=== PATIENT | female | born 1995 | race Hispanic/Latino ===

== ENCOUNTER 2021-04-27 13:27 | Emergency (ER) | payer SELFPAY ==
[2021-04-27 14:09] LABS: Absolute Lymphocytes (CBC) 1.5 K/uL (0.7-4.9); Hematocrit 36.2 % (36.0-45.0); Lymphocytes % 23.6 % (15.3-44.8); MPV 7.8 fL (7.6-11.3); RBC Red Blood Cell Count 4.13 M/uL (3.86-4.86)
[2021-04-27] MEDS ORDERED: PROMETHAZINE INJ 25 MG/ML AMP ONE (14:10)
[2021-04-27 14:15] LABS: Urine Blood 3+ (Negative); Urine Glucose Negative (Negative); Urine Protein 2+ (Negative); Urine Specific Gravity >=1.030 (1.005-1.030)
[2021-04-27 14:23] LABS: BUN Blood Urea Nitrogen 9 mg/dL (7-18); Bicarbonate 25 mmol/L (21-32); Glucose Level 147 mg/dL (74-106); Potassium 3.6 mmol/L (3.5-5.1); Sodium Level 137 mmol/L (136-145)
[2021-04-27 14:24] LABS: Urine Specific Gravity/Preg >1.030 (1.005-1.030)
[2021-04-27 14:40] LABS: HCG, Quantitative 3765 mIU/mL (1-3)
--- NOTE | 2021-04-27 15:10 | RAD REPORT ---
EXAM DESCRIPTION: US - Transvaginal OB - 04/27/2021 2:53 pm CLINICAL HISTORY: with abdominal pain COMPARISON: None. FINDINGS: The uterus measures 10 x 5 x 5 centimeters. 2 x 0.4 centimeter fluid collection within th e cervical canal probably a gestational sac. Within this is a 3 millimeter echogenic structure which may represent a pole. Cardiac activity not visualized Ovaries are normal in size and echotexture.. The right and left adnexa unremarkable No significant free fluid IMPRESSION: These findings probably indicate an incomplete
--- NOTE | 2021-04-27 15:54 | EDPHYS ---
Physician Documentation [facility] Name: Cher Woodward Age: 25 yrs Sex: Female : 1995 Arrival Date: 04/27/2021 Time: 13:31 Bed 16 Private MD: ED Physician Lupillo Hutchinson HPI: 04/27 15:55 This 25 yrs old Female presents to ER via EMS with complaints of Vaginal kb Bleeding. 15:55 The patient presents to the emergency department with abdominal pain, described as kb crampy, vaginal bleeding, that is moderate, with clots. The estimated gestational age is 8 weeks. course: care: none, Leakage of Fluid: none appreciated, Ultrasound: the patient had an ultrasound, which showed no fht detected on Monday at [facility] ER. Previous pregnancies: in previous pregnancies patient has had. Associated signs and symptoms: Pertinent positives: vaginal bleeding. The patient has not experienced similar symptoms in the past. 15:56 The patient has been recently seen by a physician:. Pt states she has had cramping and kb vaginal bleeding since Monday. Went to [facility] ER in [place] and was told she was 2 months but fht could not be detected. Came in today because the bleeding has increased with clots. 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 - Social history:: Smoking status: Patient denies any tobacco usage or history of. ROS: 15:55 Constitutional: Negative for fever, chills, and weight loss. kb 15:55 Abdomen/GI: Positive for abdominal cramps. 15:55 : Positive for vaginal bleeding. 15:55 All other systems are negative. Exam: 15:54 Constitutional: This is a well developed, well nourished patient who is awake, alert, kb and in no acute distress. Head/Face: Normocephalic, atraumatic. ENT: Moist Mucous membranes Cardiovascular: Regular rate and rhythm with a normal S1 and S2. No gallops, murmurs, or rubs. No pulse deficits. Respiratory: Respirations even and unlabored. No increased work of breathing. Talking in full sentences Skin: Warm, dry with normal turgor. Normal color. MS/ Extremity: Pulses equal, no cyanosis. Neurovascular intact. Full, normal range of motion. Neuro: Awake and alert, GCS 15, oriented to person, place, time, and situation. Moves all extremities. Normal gait. Psych: Awake, alert, with orientation to person, place and time. Behavior, mood, and affect are within normal limits. 15:54 Abdomen/GI: Inspection: abdomen appears normal, Bowel sounds: normal, Palpation: soft, in all quadrants, mild abdominal tenderness, in the suprapubic area. 15:54 : Pelvic Exam: External exam: is normal, Speculum exam: mild bleeding, blood clots in vaginal vault, no cervicitis, os that is open. Vital Signs: 13:40 BP 113 / 72; Pulse 94; Resp 18; Temp 98.7; Pulse Ox 97% ; Weight 104.33 kg; Height 5 ss7 ft. 6 in. (167.64 cm); 15:30 BP 102 / 56; Pulse 88; Resp 18; Pulse Ox 98% on R/A; ss7 13:40 Body Mass Index 37.12 (104.33 kg, 167.64 cm) ss7 MDM: 13:31 Patient medically screened. kb 15:54 Data reviewed: vital signs, nurses notes. Data interpreted: Pulse oximetry: on room air kb is 98 %. Interpretation: normal. Counseling: I had a detailed discussion with the patient and/or guardian regarding: the historical points, exam findings, and any diagnostic results supporting the discharge/admit diagnosis, lab results, radiology results, the need for outpatient follow up, an OB/Gyne specialist, to return to the emergency department if symptoms worsen or persist or if there are any questions or concerns that arise at home. 04/27 13:32 Order name: Abo/rh Typing; Complete Time: 16:05 kb 04/27 13:32 Order name: Basic Metabolic Panel; Complete Time: 14:40 kb 04/27 13:32 Order name: CBC with Diff; Complete Time: 14:10 kb 04/27 13:32 Order name: Quantitative Hcg; Complete Time: 14:40 kb 03/08 14:14 Order name: Urine Dipstick-Ancillary; Complete Time: 14:20 EDMS 04/27 14:17 Order name: Urine --Ancillary (enter results); Complete Time: 14:39 bd 04/27 13:32 Order name: IV Saline Lock; Complete Time: 13:54 kb 04/27 13:32 Order name: Labs collected and sent; Complete Time: 13:54 kb 04/27 13:32 Order name: NPO; Complete Time: 13:54 kb 04/27 13:32 Order name: Urine Dipstick-Ancillary (obtain specimen); Complete Time: 14:17 kb 04/27 13:32 Order name: US Transvaginal Ob; Complete Time: 15:16 kb 04/27 14:02 Order name: Labs - recollect needed: recollect abo/rh; Complete Time: 14:40 bd 04/27 15:20 Order name: Pelvic Exam Setup; Complete Time: 15:35 kb Administered Medications: No medications were administered Disposition: 17:08 Co-signature as Attending Physician, Lupillo Hutchinson MD. rn Disposition Summary: 04/27/21 15:53 Discharge Ordered Location: Home kb Condition: Stable kb Diagnosis - Incomplete spontaneous without complication kb Followup: kb - With: Emergency Department - When: As needed - Reason: Worsening of condition Followup: kb - With: Private Physician - When: 2 - 3 days - Reason: Recheck today's complaints, Continuance of care, Re-evaluation by your physician Discharge Instructions: - Discharge Summary Sheet kb - Incomplete Miscarriage kb Forms: - Medication Reconciliation Form kb - Thank You Letter kb - Antibiotic Education kb - Prescription Opioid Use kb - Work release form ss7 Signatures: Dispatcher [employer] EDMS Ita Vela, RAEGAN-Amirah CARLIN-Rachel Alva Roman, MD MD rn Smith, Shana, RN RN ss7
--- NOTE | 2021-04-27 15:54 | ER ---
Nurse's Notes [facility] Name: Cher Woodward Age: 25 yrs Sex: Female : 1995 Arrival Date: 04/27/2021 Time: 13:31 Bed 16 Private MD: Diagnosis: Incomplete spontaneous without complication Presentation: 04/27 13:40 Chief complaint: EMS states: Per EMS, pt was seen in [facility]. Told she was 2 ss7 months but the baby did not have a heart beat. Called EMS due to excessive vaginal bleeding with large clots. Coronavirus screen: Vaccine status: Patient reports being unvaccinated. Ebola Screen: No symptoms or risks identified at this time. Initial Sepsis Screen: Does the patient meet any 2 criteria? No. Patient's initial sepsis screen is negative. Does the patient have a suspected source of infection? No. Patient's initial sepsis screen is negative. Risk Assessment: Do you want to hurt yourself or someone else? Patient reports no desire to harm self or others. Onset of symptoms was April 23, 2021. 13:40 Method Of Arrival: EMS ss7 13:40 Acuity: LANDON 3 ss7 Triage Assessment: 13:43 General: Appears in no apparent distress. comfortable, Behavior is calm, cooperative, ss7 appropriate for age. Pain: Complains of pain in abdomen. EENT: No deficits noted. Neuro: No deficits noted. Cardiovascular: Heart tones S1 S2. Respiratory: Breath sounds are clear bilaterally. GI: Bowel sounds present X 4 quads. Abdomen is tender to palpation in right lower quadrant and left lower quadrant. : Reports vaginal bleeding that is bright red, brown, with clots, heavy flow. Derm: No deficits noted. Musculoskeletal: No deficits noted. 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 - Social history:: Smoking status: Patient denies any tobacco usage or history of. Screenin:45 Abuse screen: Denies threats or abuse. Nutritional screening: No deficits noted. ss7 Tuberculosis screening: No symptoms or risk factors identified. Fall Risk IV access (20 points). Vital Signs: 13:40 BP 113 / 72; Pulse 94; Resp 18; Temp 98.7; Pulse Ox 97% ; Weight 104.33 kg; Height 5 ss7 ft. 6 in. (167.64 cm); 15:30 BP 102 / 56; Pulse 88; Resp 18; Pulse Ox 98% on R/A; ss7 13:40 Body Mass Index 37.12 (104.33 kg, 167.64 cm) ss7 ED Course: 13:31 Patient arrived in ED. kb 13:31 [facility]C [facility] kb 13:31 Lupillo Hutchinson MD is Attending Physician. kb 13:40 Eva Ceja, RN is Primary Nurse. ss7 13:43 Triage completed. ss7 13:45 Patient has correct armband on for positive identification. Bed in low position. Call 7 light in reach. Pulse ox on. NIBP on. 13:45 No provider procedures requiring assistance completed. ss7 13:54 Abo/rh Typing Sent. ss7 13:54 Basic Metabolic Panel Sent. ss7 13:54 CBC with Diff Sent. ss7 13:54 Quantitative Hcg Sent. ss7 14:34 Arm band placed on. ss7 14:40 Abo/rh Typing Sent. ss7 14:52 US Transvaginal Ob In Process Unspecified. EDMS 16:03 IV discontinued, intact. ss7 Administered Medications: No medications were administered Outcome: 15:53 Discharge ordered by . kb 16:02 Discharged to home via ambulance, with family. ss7 16:02 Condition: good 16:02 Discharge instructions given to patient, Instructed on discharge instructions, follow up and referral plans. Demonstrated understanding of instructions, follow-up care. 16:09 Patient left the ED. 7 Signatures: Dispatcher [employer] EDMS Ita Vela FNP-C FNP-Eva Darden, RN RN [facility]
[2021-04-27 16:30] VITALS: TEMP 98.7
[2021-04-27 16:31] VITALS: BP 102/56; O2SAT 98
== END 2021-04-27 16:09 | disposition home or self-care (01) ==
LOC: ER 13:27
DX: O03.4 Incomplete spontaneous abortion without complication (principal); Z3A.08 8 weeks gestation of pregnancy
CPT/HCPCS: 36415; 76817; 80048; 81003; 81025; 84702; 85025; 86900; 86901; 99284; J2550